=== PATIENT | female | born 1995 | race African-American/Black ===

== ENCOUNTER → 2017-10-19 | Outpatient (CLI) | payer OTHER ==
--- NOTE | 2017-10-19 08:11 | DIAGNOSTIC IMAGING REPORT ---
L LOWER EXT JOINT WITHOUT CLINICAL HISTORY: LEFT KNEE PAIN pain TECHNIQUE: MRI multi axial acquisition COMPARISON STUDY: None FINDINGS: Mild soft tissue edema surrounding the knee. Small joint effusion. Several synechiae of the suprapatellar bursa. No evidence for chondromalacia patella. The patellar retinaculum is intact. Medial and lateral collateral ligaments are intact. Medial meniscus appears to be intact. Lateral meniscus shows slight apical truncation with mild surface maceration. Anterior and posterior cruciate ligaments are intact. Mild edema of the infrapatellar fat pad. IMPRESSION: 1. Small apical truncation mid lateral meniscus with grade 2 intrameniscal signal of the posterior horns of the medial as well as lateral meniscus. 2. Mild soft tissue edema. 3. Small joint effusion. 4. Slight focal concavity anterior aspect lateral femoral condyle felt to represent old or subacute posttraumatic change. The above report was generated using voice recognition software. It may contain grammatical, syntax or spelling errors. Electronically signed by: Fly Israel M.D. 10/19/2017 8:09 AM Dictated Date/Time: 10/19/2017 8:01 AM
== END | disposition home or self-care (01) ==
LOC: C.MRI 07:14
PROVIDERS: ATTEND Family Medicine
DX: M25.562 Pain in left knee (principal)